=== PATIENT | female | born 1985 | race Caucasian/White ===

== ENCOUNTER 2017-01-05 13:07 | Emergency (ER) | payer SELFPAY ==
[~2017-01-05 13:07] MED LIST: ABILIFY; ABILIFY5 MG PO; ACYCLOVIR; AMOXICILLIN250 M1 PO; AZO STANDARD97.5 MG PO; CELEXA20 MG PO; CIPRO250 MG PO; CIPRO500 MG PO; DOXYCYCLINE HY100 MG PO; EFFEXOR XR150 M1 PO; FAMOTIDINE20 MG PO; FIRST-PROG25 MG/SUPP; FLEXERIL10 MG; FLEXERIL10 MG PO; FLINTSTONE1 TAB.CHEW; GENOPTIC5 ML OP; H; HYDROXYZINE HCL10 MG PO; KEFLEX500 MG PO; LEXAPRO10 MG PO; MACROBID 100 M100 MG; MACROBID 100 M100 MG PO; MOTRIN600 MG PO; NO MEDS; NORCO 5-325 TA1 EACH PO; NORCO 5/325 TAB1 TAB PO; NORCO 7.5-3251 EACH PO; ORTHO TRI-7 DAYS X; OXYCODONE HCL5 MG; PEN-VEE K500 MG PO; PEPCID20 MG PO; PEPCID40 MG PO; PREDNISONE PO; PRENATAL1 EACH PO; PRENATAL1 TAB; PRENATAL1 TAB PO; PROGESTERONE; PYRIDIUM200 M1 PO; PYRIDIUM200 MG PO; REGLAN10 MG PO; REGLAN5 MG; SEROQUEL25 MG; TRAMADOL; TRAMADOL HCL50 MG PO; TRAZODONE HCL100 M1 PO; TYLENOL325 MG; ULTRAM50 MG PO; VALTREX500 MG; VALTREX500 MG PO; VICOPROFEN 200-1 TAB PO; VICOPROFEN PO; VISTARIL50 MG PO; XANAX0.25 M1 PO; ZANTAC150 MG PO; ZOFRAN ODT4 MG/UDTAB PO; ZOFRAN4 M1 PO; ZOLOFT; ZOLOFT100 MG PO; ZOVIRAX15 GM; [UNRECOGNIZED DRUG - REMARK] PO
[2017-01-05] MEDS ORDERED: PENICILLIN V P500 M1 PO (14:26)
== END 2017-01-05 14:28 ==
LOC: EDMED 13:07
DX: K02.9 Dental caries, unspecified (principal); F15.10 Other stimulant abuse, uncomplicated